=== PATIENT | male | born 1970 | race Caucasian/White ===

== ENCOUNTER 2016-12-30 10:56 | Emergency (ER) | payer MEDICAID ==
[2016-12-30] MEDS ORDERED: Ketorolac 30 MG/ML SDV IVPUSH ONE (11:25)
[2016-12-30] MEDS ORDERED: Sodium Chloride 0.9% 10 ML Syringe FLUSH PRN (11:25)
[2016-12-30] MEDS ORDERED: LORazepam 2 MG/ML MDV IVPUSH ONE (11:25)
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
[2016-12-30] MEDS: Sodium Chloride 0.9% 1,000 ML IV SCH ×2 (11:58→15:27)
[2016-12-30] MEDS ORDERED: Prochlorperazine 10 MG/2 ML SDV IVPUSH ONE (12:01)
--- NOTE | 2016-12-30 13:26 | CR ---
Chest 2V HISTORY: Rib fracture follow-up study. COMPARISON: Prior CT chest 12/10/2016. FINDINGS: The rib fractures that were seen on CT scan are only partially visualized involving the le ft fifth through ninth ribs. No pneumothorax. Multiple pulmonary nodules seen. No acute congestive c hange. No effusions.
[2016-12-30 14:59] VITALS: BP 148/92
== END 2016-12-30 15:30 | disposition home or self-care (01) ==
LOC: JP.ED 10:56
DX: R11.2 Nausea with vomiting, unspecified (principal); Z79.899 Other long term (current) drug therapy
CPT/HCPCS: 36415; 71020; 80048; 85025; 96361; 96374; 96375; 99284; J0780; J1885; J2060; J7040; J7050

== ENCOUNTER 2017-03-13 16:17 | Emergency (ER) | payer MEDICAID ==
[2017-03-13] MEDS ORDERED: Lidocaine 1% with EPINEPHrine 1:100,000 50 ML MDV SUBCUT STA (16:49)
[2017-03-13] MEDS ORDERED: Acetaminophen 500 MG Tab PO ONE (16:57)
[2017-03-13] MEDS ORDERED: Diphtheria,Pertussis(Acell),Tetanus Vaccine 0.5 ML SDV IM ONE (16:59)
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
[2017-03-13 17:57] VITALS: BP 133/85
[2017-03-13] MEDS ORDERED: Bacitracin Oint 1 GM U/D Packet TOP ONE (18:30)
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
== END 2017-03-13 19:13 | disposition home or self-care (01) ==
LOC: JP.ED 16:17
DX: S08.0XXA Avulsion of scalp, initial encounter (principal); Z98.890 Other specified postprocedural states; W20.8XXA Other cause of strike by thrown, projected or falling object, initial encounter
CPT/HCPCS: 70450; 90471; 90715; 99284; A9270; 99282

== ENCOUNTER 2017-03-15 20:17 | Emergency (ER) | payer MEDICAID ==
--- NOTE | 2017-03-15 20:53 | EDM.PDOC ---
[id number] 4d FEVER Time Seen by Provider: 03/15/17 20:53 Source of Information: Reports: Patient, Family History Limitations: Reports: No Limitations - History of Present Illness INITIAL COMMENTS - FREE TEXT/NARRATIVE: pt has had recent trauma to his scalp. He is cleaning this open area. He did not have injury to the jefry portion of the skull. He has had multiple tick bites. Onset: Gradual, Other ( Pt has felt ill over the last 36 hours. ) Generalized Pain Score (Numeric/FACES): 4 - Related Data Allergies Allergy/AdvReac Type Severity Reaction Status Date / Time No Known Allergies Allergy Verified 03/15/17 20:33 Home Meds: Home Meds Ibuprofen [IJD: Ibuprofen] 800 mg PO ASDIRECTED 03/15/17 [History] Past Medical History HEENT History: Reports: Hard of Hearing Respiratory History: Reports: Pneumothorax Musculoskeletal History: Reports: Fracture Other Musculoskeletal History: R knee, thumb collarbone 5 recent left rib fx - Infectious Disease History Infectious Disease History: Reports: Chicken Pox, Measles, Mumps - Past Surgical History Musculoskeletal Surgical History: Reports: Other (See Below) Other Musculoskeletal Surgeries/Procedures:: surgical repair of thumb Social & Family History - Tobacco Use Smoking Status *Q: Never Smoker Second Hand Smoke Exposure: No - Caffeine Use Caffeine Use: Reports: None, Coffee - Alcohol Use Days Per Week of Alcohol Use: 0 - Recreational Drug Use Recreational Drug Use: No - Living Situation & Occupation Living situation: Reports: , with Family Occupation: Employed ED ROS GENERAL - Review of Systems Review Of Systems: See Below Constitutional: Reports: Fever, Chills, Malaise HEENT: Reports: No Symptoms Respiratory: Reports: No Symptoms Cardiovascular: Reports: No Symptoms Endocrine: Reports: No Symptoms GI/Abdominal: Reports: No Symptoms : Reports: No Symptoms Musculoskeletal: Reports: Muscle Pain, Other (pt has had several tick bites) Skin: Reports: Other (pt has a open scalp wound which looks clean) ED EXAM, SEPSIS - Physical Exam Exam: See Below Text/Narrative:: pt arrived with shaking chills which started a little in the nite last nite. He has had 2-3 tick bites in the last week. Exam Limited By: No Limitations General Appearance: Alert, Mild Distress Ears: Normal TMs Nose: Normal Inspection Throat/Mouth: Normal Inspection, Other ( throat is not red. There is not swollen glands. ) Head: Atraumatic Neck: Normal Inspection Respiratory/Chest: No Respiratory Distress Cardiovascular: Regular Rate, Rhythm, Tachycardia GI/Abdominal: Soft, Non-Tender (Male) Exam: Deferred Rectal (Males) Exam: Deferred Back: Normal Inspection Extremities: Normal Inspection, Other (pt does have alot of muscle pain, no rashes. ) Neurological: Alert, Oriented, Normal Cognition Psychiatric: Normal Affect Course - Vital Signs Last Recorded V/S: Last Vital Signs Temp 37.2 C 03/15/17 22:12 Pulse 89 03/15/17 22:12 Resp 12 03/15/17 22:12 BP 111/70 03/15/17 22:12 Pulse Ox 96 03/15/17 22:12 - Orders/Labs/Meds Labs: Laboratory Tests 03/15/17 03/15/17 03/15/17 Range/Units 20:50 20:50 20:51 WBC 6.2 (4.5-11.0) K/uL RBC 4.81 (4.30-5.90) M/uL Hgb 13.6 (12.0-15.0) g/dL Hct 40.5 (40.0-54.0) % MCV 84 (80-98) fL MCH 28 (27-31) pg MCHC 34 (32-36) % Plt Count 264 (150-400) K/uL Neut % (Auto) 77 H (36-66) % Lymph % (Auto) 9 L (24-44) % Coke % (Auto) 11 H (2-6) % Eos % (Auto) 3 (2-4) % Baso % (Auto) 1 (0-1) % Sodium 137 L (140-148) mmol/L Potassium 3.9 (3.6-5.2) mmol/L Chloride 102 (100-108) mmol/L Carbon Dioxide 26 (21-32) mmol/L Anion Gap 12.9 (5.0-14.0) mmol/L BUN 17 (7-18) mg/dL Creatinine 1.0 (0.8-1.3) mg/dL Est Cr Clr Drug Dosing 100.98 mL/min Estimated GFR (MDRD) > 60 (>60) Glucose 144 H (74-106) mg/dL Calcium 8.6 (8.5-10.1) mg/dL Total Bilirubin 0.5 D (0.2-1.0) mg/dL AST 22 (15-37) U/L ALT 37 (12-78) U/L Alkaline Phosphatase 89 D (46-116) U/L C-Reactive Protein 4.51 H (0.0-0.3) mg/dL Total Protein 7.3 (6.4-8.2) g/dL Albumin 3.7 (3.4-5.0) g/dL Globulin 3.6 H (2.3-3.5) g/dL Albumin/Globulin Ratio 1.0 L (1.2-2.2) Urine Color Urine Appearance Urine pH (4.5-8.0) Ur Specific [place] (1.008-1.030) Urine Protein (NEGATIVE) mg/dL Urine Glucose (UA) (NEGATIVE) mg/dL Urine Ketones (NEGATIVE) mg/dL Urine Occult Blood (NEGATIVE) Urine Nitrite (NEGAITVE) Urine Bilirubin (NEGATIVE) Urine Urobilinogen (NORMAL) mg/dL Ur Leukocyte Esterase (NEGATIVE) Urine RBC (0-5) Urine WBC (0-5) Ur Epithelial Cells Amorphous Sediment Urine Bacteria Urine Mucus 03/15/17 Range/Units 21:09 WBC (4.5-11.0) K/uL RBC (4.30-5.90) M/uL Hgb (12.0-15.0) g/dL Hct (40.0-54.0) % MCV (80-98) fL MCH (27-31) pg MCHC (32-36) % Plt Count (150-400) K/uL Neut % (Auto) (36-66) % Lymph % (Auto) (24-44) % [place]ke % (Auto) (2-6) % Eos % (Auto) (2-4) % Baso % (Auto) (0-1) % Sodium (140-148) mmol/L Potassium (3.6-5.2) mmol/L Chloride (100-108) mmol/L Carbon Dioxide (21-32) mmol/L Anion Gap (5.0-14.0) mmol/L BUN (7-18) mg/dL Creatinine (0.8-1.3) mg/dL Est Cr Clr Drug Dosing mL/min Estimated GFR (MDRD) (>60) Glucose (74-106) mg/dL Calcium (8.5-10.1) mg/dL Total Bilirubin (0.2-1.0) mg/dL AST (15-37) U/L ALT (12-78) U/L Alkaline Phosphatase (46-116) U/L C-Reactive Protein (0.0-0.3) mg/dL Total Protein (6.4-8.2) g/dL Albumin (3.4-5.0) g/dL Globulin (2.3-3.5) g/dL Albumin/Globulin Ratio (1.2-2.2) Urine Color Yellow Urine Appearance Clear Urine pH 6.5 (4.5-8.0) Ur Specific [place] 1.015 (1.008-1.030) Urine Protein Negative (NEGATIVE) mg/dL Urine Glucose (UA) Normal (NEGATIVE) mg/dL Urine Ketones Negative (NEGATIVE) mg/dL Urine Occult Blood Negative (NEGATIVE) Urine Nitrite Negative (NEGAITVE) Urine Bilirubin Negative (NEGATIVE) Urine Urobilinogen Normal (NORMAL) mg/dL Ur Leukocyte Esterase Negative (NEGATIVE) Urine RBC 0-5 (0-5) Urine WBC 0-5 (0-5) Ur Epithelial Cells Rare Amorphous Sediment Few Urine Bacteria Not seen Urine Mucus Few Meds: Medications Discontinued Medications Generic Name Dose Route Start Last Admin Trade Name Desiree PRN Reason Stop Dose Admin Acetaminophen 650 mg 03/15/17 21:16 03/15/17 21:21 Tylenol PO 03/15/17 21:17 650 mg NOW ONE Administration Bacitracin 1 dose 03/15/17 22:32 03/15/17 22:45 Bacitracin Oint 1 Gm TOP 03/15/17 22:33 1 dose ONETIME ONE Administration Sodium Chloride 1,000 mls @ 999 mls/hr 03/15/17 21:00 03/15/17 21:10 Normal Saline IV 999 mls/hr ASDIRECTED RUBIN Administration Doxycycline Hyclate 100 mg/ 100 mls @ 100 mls/hr 03/15/17 22:31 03/15/17 22: 45 Sodium Chloride IV 03/15/17 23:30 100 mls/hr ONETIME ONE Administration Ibuprofen 600 mg 03/15/17 21:08 03/15/17 21:22 Motrin PO 03/15/17 21:09 Not Given ONETIME ONE - Re-Assessments/Exams Free Text/Narrative Re-Assessment/Exam: 03/15/17 23:04 The wound on the top of his head looks clean and has no swelling around it. His wbc is 6,200. He has normal platlets and sgot. This probaly is an early anaplasmosis. He had tick studies drawn. Pt had a influ a and b. -- this was neg. He was given 100mg of doxycline iv and will be sent home on the oral. Departure - Departure Time of Disposition: 00:00 Disposition: Home, Self-Care 01 Condition: fair Clinical Impression: Anaplasmosis, Scalp wound - Discharge Information Instructions: Ehrlichiosis and Anaplasmosis, [id number] Referrals: Mikie Ngo MD [Primary Care Provider] - Forms: ED Department Discharge Care Plan Goals: appt with Dr Ngo Monday to see if he is improving, doxycline 100mg po bid- - take with food.
[2017-03-15] MEDS ORDERED: Sodium Chloride 0.9% 1,000 ML IV SCH (21:00)
[2017-03-15] MEDS ORDERED: Ibuprofen 600 MG Tab PO ONE (21:08)
[2017-03-15] MEDS ORDERED: Acetaminophen 325 MG Tab PO ONE (21:16)
[2017-03-15 22:13] VITALS: BP 111/70
[2017-03-15] MEDS ORDERED: Doxycycline 100 MG in Sodium Chloride 0.9% 100 ML IV ONE (22:31)
[2017-03-15] MEDS ORDERED: Bacitracin Oint 1 GM U/D Packet TOP ONE (22:32)
== END 2017-03-16 | disposition home or self-care (01) ==
LOC: JP.ED 20:17
DX: A77.49 Other ehrlichiosis (principal); S00.06XA Insect bite (nonvenomous) of scalp, initial encounter; Z98.890 Other specified postprocedural states; Z79.899 Other long term (current) drug therapy; W57.XXXA Bitten or stung by nonvenomous insect and other nonvenomous arthropods, initial encounter
CPT/HCPCS: 36415; 80053; 81001; 85025; 86140; 86618; 86666; 86753; 87040; 87804; 96361; 96365; 99284; A9270; J7030; J7040

== ENCOUNTER 2018-01-08 19:33 | Emergency (ER) | payer MEDICAID ==
[2018-01-08] MEDS ORDERED: Aspirin 81 MG Tab.Chew PO ONE (20:03)
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
[2018-01-08] MEDS ORDERED: Ketorolac 60 MG/2 ML SDV IM ONE (20:42)
[2018-01-08] MEDS ORDERED: Cyclobenzaprine 10 MG Tab PO ONE (20:42)
[2018-01-08 21:14] VITALS: BP 116/75
--- NOTE | 2018-01-09 09:11 | CR ---
Chest 1V Frontal HISTORY: Chest pain COMPARISON: CT chest 09/07/2017. FINDINGS: Stable nodular densities in the upper and midlung zones in correlation with CT scan. No new infiltrates or effusions no acute congestive change. Cardiac size appears normal. Impression: Stable nodularity present on multiple prior studies. No new infiltrates.
== END 2018-01-08 21:44 | disposition home or self-care (01) ==
LOC: JP.ED 19:33
DX: R07.89 Other chest pain (principal)
CPT/HCPCS: 36415; 71045; 80053; 84484; 85025; 85379; 93005; 96372; 99283; 99285; A9270; J1885; 93010